=== PATIENT | female | born 1965 | race Caucasian/White ===

== ENCOUNTER → 2023-09-21 12:53 | Outpatient (REF) | payer OTHER, SELFPAY ==
[2023-09-21 15:00] LABS: Hepatitis B Surface Antibody Positive
[2023-09-23 15:35] LABS: Mumps Virus IgG Positive; Varicella Zoster IgG (VZV) Positive
[2023-09-23 19:39] LABS: Rubella Low Positive
[2023-09-24 17:19] LABS: Rubeola (Measles) IgG Positive
== END ==
LOC: OHS 12:53
PROVIDERS: ATTENDING PHYSICIAN Nurse Practitioner Family
DX: Z13.9 Encounter for screening, unspecified (principal); Z23 Encounter for immunization
CPT/HCPCS: 36415; 71046; 86706; 86735; 86762; 86765; 86787